=== PATIENT | male | born 1960 ===

== ENCOUNTER 2022-02-17 17:19 | Outpatient (REF) | payer BC, SELFPAY ==
[2022-02-17 17:36] LABS: Bacteria Moderate HPF (Negative); C & S Indicated? C&S Done As Ordered; Crystals Negative HPF (Negative); Epithelial Cells Rare HPF (Negative); Mucus Trace (Negative); WBC 20-50 HPF (0-5)
== END 2022-02-17 17:20 | disposition home or self-care (01) ==
LOC: LBN 17:19
PROVIDERS: Visit Provider Nurse Practitioner Family
DX: R30.9 Painful micturition, unspecified (principal)
CPT/HCPCS: 87077; 81015; 87086; 87186

== ENCOUNTER 2022-03-12 10:55 | Outpatient (REF) | payer BC, SELFPAY ==
[2022-03-12 19:56] LABS: Bilirubin Negative (Negative); Blood Trace-lysed (Negative); Clarity Sl Cloudy (Clear); Glucose Negative (Negative); Ketones Negative (Negative); Leukocyte Esterase Moderate (Negative); Nitrite Negative (Negative); Urobilinogen 0.2 EU/dL (Up TO 0.2)
[2022-03-12 20:03] LABS: Bacteria Few HPF (Negative); C & S Indicated? Yes; Casts Negative LPF (Negative); Crystals Negative HPF (Negative); Epithelial Cells Few HPF (Negative); Mucus Negative (Negative); RBC 0-2 HPF (0-2)
== END 2022-03-12 10:56 | disposition home or self-care (01) ==
LOC: LBN 10:55
PROVIDERS: Visit Provider Nurse Practitioner Family
DX: R39.89 Other symptoms and signs involving the genitourinary system (principal); N39.0 Urinary tract infection, site not specified; R30.0 Dysuria; R31.9 Hematuria, unspecified
CPT/HCPCS: 81003; 81015; 87086

== ENCOUNTER 2024-10-29 01:47 | Outpatient (CLI) | payer BC, SELFPAY ==
--- NOTE | 2024-10-29 | DI.RAD_ITS ---
Exam(s) XR LUMBAR SPINE COMPLETE EXAM: XR LUMBAR SPINE COMPLETE CLINICAL HISTORY: Other injury of unspecified body region, initial encounter, T14.8XXA. TECHNIQUE: 2D digital imaging was performed. Five views. COMPARISON: No exams were available for comparison FINDINGS: BONES: No fracture or destructive lesion. Vertebral body heights are maintained. Small endplate osteophytes. [id number] facet hypertrophy identified at L3-4 and L4-5.. DISKS: Intervertebral disc spaces are maintained. ALIGNMENT: Slight levoscoliosis versus patient positioning. SOFT TISSUE: Normal. IMPRESSION: Mild degenerative disc changes. Icnp-[id number] facet degenerative changes. DATA REPOSITORY: RADIATION DOSE DELIVERED:
--- NOTE | 2024-10-29 | DI.RAD_ITS ---
Exam(s) XR HIP RT COMPLETE AP PELVIS EXAM: XR HIP RT COMPLETE AP PELVIS CLINICAL HISTORY: Rt hip pain, M25.551. TECHNIQUE: 2D digital imaging was performed. Three views. COMPARISON: No exams were available for comparison FINDINGS: BONES: No acute fracture is present. No bony destructive lesion is seen. JOINTS: No dislocation present. Hip joint spaces are maintained. SI joints and pubic symphysis are unremarkable. SOFT TISSUE: Normal. IMPRESSION: Unremarkable radiographs pelvis and right hip. DATA REPOSITORY: RADIATION DOSE DELIVERED:
== END 2024-10-29 02:07 ==
LOC: DI 01:50
PROVIDERS: PCP Specialist/Technologist Athletic Trainer; Visit Provider Specialist/Technologist Athletic Trainer
DX: M25.551 Pain in right hip (principal)
CPT/HCPCS: 72110; 73502